=== PATIENT | male | born 1950 | race Caucasian/White ===

== ENCOUNTER 2017-07-03 09:06 | Day surgery (SDC) | payer OTHER ==
[~2017-07-03] VITALS: Ht 170.2 cm; Wt 98.6 kg
[~2017-07-03 09:06] MED LIST: AMOXICILLIN875 MG PO; ATIVAN0.5 MG PO; CYANOCOBALAM1000 MCG PO; CYMBALTA60 MG PO; DECADRON1 MG PO; GLUCOPHAGE XR,500 MG PO; LIPITOR20 MG PO; MYRBETRIQ50 MG PO; NEURONTIN300 MG PO; PLAVIX75 MG PO; PROTONIX40 MG PO; ZANAFLEX4 MG PO; ZESTRIL20 MG PO
[2017-07-03 09:51] LABS: HEMOGLOBIN 15.8 G/DL (12.5-16.6); MCH 30.5 PG (29.0-34.0); MCHC 33.6 G/DL (30.0-36.0); MCV 90.7 FL (86-99); PLATELET COUNT 326 K/uL (156-360); RBC DIS.WIDTH-SD 49.3 % (39-53); RED BLOOD COUNT 5.18 M/uL (4.00-5.50); WHITE BLOOD COUNT 10.4 K/uL (4.1-10.2)
[2017-07-03 10:01] LABS: CHLORIDE 101 MEQ/L (99-109); POTASSIUM 3.8 MEQ/L (3.7-5.4); SODIUM 137 MEQ/L (136-147)
[2017-07-03 10:07] LABS: GFR ESTIMATE (CALCULATED) > 59 mL/min/ (58.99-99999); GLUCOSE 186 mg/dL (70-99); UREA NITROGEN (BUN) 17 mg/dL (9-23)
[2017-07-03 10:08] LABS: APPEARANCE CLEAR ((CLEAR)); BILIRUBIN NEGATIVE; BLOOD NEGATIVE; COLOR YELLOW ((YELLOW)); GLUCOSE (STRIP) NEGATIVE; KETONES NEGATIVE; LEUKOCYTES NEGATIVE; NITRITE NEGATIVE; PROTEIN (STRIP) NEGATIVE; SPECIFIC GRAVITY 1.005 (1.000-1.030); UROBILINOGEN 0.2 MG/DL (0.2-1.0)
[2017-07-03 10:20] VITALS: BP 163/72
[2017-07-03 18:13] VITALS: BP 173/84
[2017-07-03 19:45] VITALS: BP 135/72
[2017-07-03 23:32] VITALS: BP 135/64
[2017-07-04 08:07] VITALS: BP 139/65
[2017-07-04] MEDS ORDERED: HYDROCODON-ACE1 EAC7 PO (08:23)
== END 2017-07-04 09:27 | disposition home or self-care (01) ==
LOC: SDC 09:06 → ENRESERV 15:59 → 2SOUTH 16:02 → ENRESERV 16:58 → 3EAST 17:39
PROVIDERS: Neurological Surgery
DX: M48.02 Spinal stenosis, cervical region (principal); M47.22 Other spondylosis with radiculopathy, cervical region; M50.13 Cervical disc disorder with radiculopathy, cervicothoracic region; I10 Essential (primary) hypertension; E11.9 Type 2 diabetes mellitus without complications; K21.9 Gastro-esophageal reflux disease without esophagitis; Z79.84 Long term (current) use of oral hypoglycemic drugs; F17.200 Nicotine dependence, unspecified, uncomplicated
CPT/HCPCS: 72020; 76000; 80048; 81003; 82948; 85027; 93005; 94799; C1713; G0378; J0131; J0330; J0690; J1100; J1170; J2405; J2710; J3010; J3480